=== PATIENT | male | born 1950 | race Caucasian/White ===

== ENCOUNTER → 2018-08-23 | Outpatient (REF) | payer MEDICARE, BC ==
[~2018-08-23] MED LIST: NO ROUTINE MEDS
== END ==
LOC: ZZSENDIN 12:07
PROVIDERS: ATTEND Family Medicine
DX: N39.0 Urinary tract infection, site not specified (principal); B96.89 Other specified bacterial agents as the cause of diseases classified elsewhere
CPT/HCPCS: 87077; 87088; 87186